=== PATIENT | male | born 1970 | race Caucasian/White ===

== ENCOUNTER 2022-01-28 13:21 | Emergency (ER) | payer MEDICAID ==
[~2022-01-28] VITALS: Ht 180.3 cm; Wt 84.0 kg
[2022-01-28 13:25] VITALS: BP 126/84
[2022-01-28] MEDS ORDERED: KETOROLAC 60MG/2ML VIAL IM STA (13:43)
[2022-01-28] MEDS ORDERED: ACETAMINOPHEN 325MG TABLET PO ONE (14:15)
[2022-01-28 14:46] LABS: BASOPHILS % 0.4 % (0.0-2.0); EOSINOPHILS % 3.6 % (0.0-5.0); HEMATOCRIT. 44.5 % (42.0-52.0); HEMOGLOBIN. 15.4 g/dL (14.0-18.0); LYMPHOCYTES % 23.3 % (20.0-50.0); MEAN CORPUSCULAR HEMOGLOBIN 29.2 pg (28.0-32.0); MEAN CORPUSCULAR VOLUME 84.2 fL (80.0-94.0); MEAN PLATELET VOLUME 9.5 fl (7.4-10.4); MONOCYTES % 5.5 % (2.0-8.0); NEUTROPHILS % 67.2 % (40.0-76.0); PLATELET 116 x1000/uL (130-400); RED BLOOD CELL COUNT 5.29 mill/uL (4.7-6.1); RED CELL DISTRIBUTION WIDTH 13.8 % (11.6-14.6)
[2022-01-28 14:55] LABS: CHLORIDE 103 mEq/L (98-107)
[2022-01-28 15:20] LABS: ETHANOL BLOOD < 10 mg/dL
[2022-01-28] MEDS ORDERED: OMEP40CA20 MT (16:08)
== END 2022-01-28 16:27 | disposition home or self-care (01) ==
LOC: ER 13:21
DX: R10.13 Epigastric pain (principal); R94.31 Abnormal electrocardiogram [ECG] [EKG]; I10 Essential (primary) hypertension; E11.9 Type 2 diabetes mellitus without complications
CPT/HCPCS: 36415; 74176; 80053; 80320; 83690; 85025; 99284; J1885; G0480

== ENCOUNTER 2023-01-09 09:09 | Emergency (ER) | payer OTHER ==
[~2023-01-09] VITALS: Ht 182.9 cm; Wt 88.5 kg
[~2023-01-09 09:09] MED LIST: OMEP40CA20 MT
[2023-01-09 09:29] VITALS: O2SAT 100
[2023-01-09 09:47] LABS: BASOPHILS % 0.3 % (0.0-2.0); EOSINOPHILS % 2.1 % (0.0-5.0); HEMATOCRIT. 39.4 % (42.0-52.0); HEMOGLOBIN. 13.4 g/dL (14.0-18.0); LYMPHOCYTES % 31.8 % (20.0-50.0); MEAN CORPUSCULAR HEMOGLOBIN 29.1 pg (28.0-32.0); MEAN CORPUSCULAR HGB CONC 33.9 g/dL (31.0-37.0); MEAN CORPUSCULAR VOLUME 85.9 fL (80.0-94.0); MEAN PLATELET VOLUME 8.8 fl (7.4-10.4); MONOCYTES % 6.7 % (2.0-8.0); NEUTROPHILS % 59.1 % (40.0-76.0); PLATELET 115 x1000/uL (130-400); RED BLOOD CELL COUNT 4.59 mill/uL (4.7-6.1); RED CELL DISTRIBUTION WIDTH 15.1 % (11.6-14.6); WHITE BLOOD COUNT 3.9 x1000/uL (4.5-11.0)
[2023-01-09 09:57] LABS: CHLORIDE 107 mEq/L (98-107); INDEX HEMOLYSI 1 (1-3); INDEX ICTERIC 1 (1-4); INDEX LIPEMIC 1 (1-3); POTASSIUM 4.7 mEq/L (3.5-5.1); PROTHROMBIN TIME 10.3 sec (9.6-11.0); SODIUM 139 mEq/L (136-145)
[2023-01-09] MEDS ORDERED: MAGNESIUM/ALUMINUM HYDROXIDE/SIMETHICONE 30ML UDC PO STA (10:06)
[2023-01-09] MEDS ORDERED: DICYCLOMINE 10 MG/5 ML ORAL SYR PO STA (10:06)
[2023-01-09 10:08] LABS: ALANINE AMINOTRANSFERASE 24 IU/L (13-61); ALBUMIN 3.8 g/dL (3.4-5.0); ASPARTATE AMINOTRANSFERASE 14 IU/L (15-37); BILIRUBIN TOTAL 0.2 mg/dL (0.1-1.0); CALCIUM 8.4 mg/dL (8.5-10.1); CARBON DIOXIDE 27 mEq/L (21-32); CREATININE 1.1 mg/dL (0.6-1.3); GLUCOSE 201 mg/dL (70-105); PROTEIN TOTAL 7.1 g/dL (6.0-8.3); TROPONIN I HIGH SENSITIVITY 4 ng/L (<78); UREA NITROGEN BLOOD 20 mg/dL (7-21)
[2023-01-09] MEDS ORDERED: FAMOTIDINE 20MG TABLET PO ONE (10:15)
[2023-01-09] MEDS ORDERED: FAMO-135 MT (13:58)
[2023-01-09] MEDS ORDERED: KETOROLAC 30MG/ML VIAL IM ONE (14:30)
[2023-01-09] MEDS ORDERED: KETOROLAC 30MG/ML VIAL IM NR (14:45)
[2023-01-09] MEDS ORDERED: FAMOTIDINE 20MG TABLET PO NR (14:45)
[2023-01-09] MEDS ORDERED: MAGNESIUM/ALUMINUM HYDROXIDE/SIMETHICONE 30ML UDC PO NR (14:45)
[2023-01-09] MEDS ORDERED: HYDROCODONE/ACETAMINOPHEN 10/325MG TABLET PO ONE (15:00)
[2023-01-09 15:16] VITALS: BP 135/87; PULSE 91; RESP 16; TEMP 98.2
== END 2023-01-09 15:17 | disposition home or self-care (01) ==
LOC: ER 09:09
DX: K29.70 Gastritis, unspecified, without bleeding (principal); E11.9 Type 2 diabetes mellitus without complications; I10 Essential (primary) hypertension; Z90.49 Acquired absence of other specified parts of digestive tract; Z98.890 Other specified postprocedural states; Z88.8 Allergy status to other drugs, medicaments and biological substances
CPT/HCPCS: 80053; 80320; 83690; 85025; 85610; 84484; 36415; 71045; 93005; 99285; J1885; G0480

== ENCOUNTER 2023-01-12 03:11 | Emergency (ER) | payer OTHER ==
[~2023-01-12] VITALS: Ht 182.9 cm; Wt 89.0 kg
[~2023-01-12 03:11] MED LIST changes: +FAMO-135 MT
[2023-01-12 03:36] VITALS: O2SAT 98
[2023-01-12 04:03] LABS: BASOPHILS % 0.6 % (0.0-2.0); EOSINOPHILS % 2.7 % (0.0-5.0); HEMATOCRIT. 40.9 % (42.0-52.0); HEMOGLOBIN. 14.1 g/dL (14.0-18.0); LYMPHOCYTES % 38.4 % (20.0-50.0); MEAN CORPUSCULAR HEMOGLOBIN 29.3 pg (28.0-32.0); MEAN CORPUSCULAR HGB CONC 34.3 g/dL (31.0-37.0); MEAN CORPUSCULAR VOLUME 85.4 fL (80.0-94.0); MEAN PLATELET VOLUME 9.4 fl (7.4-10.4); MONOCYTES % 7.5 % (2.0-8.0); NEUTROPHILS % 50.8 % (40.0-76.0); PLATELET 133 x1000/uL (130-400); RED BLOOD CELL COUNT 4.79 mill/uL (4.7-6.1); RED CELL DISTRIBUTION WIDTH 14.9 % (11.6-14.6); WHITE BLOOD COUNT 4.9 x1000/uL (4.5-11.0)
[2023-01-12 04:19] LABS: CHLORIDE 104 mEq/L (98-107); INDEX HEMOLYSI 2 (1-3); INDEX ICTERIC 1 (1-4); INDEX LIPEMIC 1 (1-3); POTASSIUM 4.4 mEq/L (3.5-5.1); SODIUM 139 mEq/L (136-145)
[2023-01-12 04:42] LABS: ALANINE AMINOTRANSFERASE 26 IU/L (13-61); ALBUMIN 4.1 g/dL (3.4-5.0); ASPARTATE AMINOTRANSFERASE 18 IU/L (15-37); BILIRUBIN TOTAL 0.3 mg/dL (0.1-1.0); CALCIUM 9.1 mg/dL (8.5-10.1); CARBON DIOXIDE 29 mEq/L (21-32); CREATININE 1.2 mg/dL (0.6-1.3); GLUCOSE 189 mg/dL (70-105); PROTEIN TOTAL 7.2 g/dL (6.0-8.3); TROPONIN I HIGH SENSITIVITY 4 ng/L (<78); UREA NITROGEN BLOOD 12 mg/dL (7-21)
[2023-01-12] MEDS ORDERED: MAGNESIUM/ALUMINUM HYDROXIDE/SIMETHICONE 30ML UDC PO STA (05:24)
[2023-01-12] MEDS ORDERED: ONDANSETRON HCL 4MG/2ML INJ IV STA (05:24)
[2023-01-12] MEDS ORDERED: FAMOTIDINE 20MG/2ML VIAL IV STA (05:24)
[2023-01-12] MEDS ORDERED: SODIUM CHLORIDE 0.9% 1,000 ML IV ONE (05:30)
[2023-01-12 05:48] LABS: CLARITY URINE CLEAR (CLEAR); COLOR URINE YELLOW (YELLOW); GLUCOSE URINE 1+ (NEGATIVE); KETONES URINE NEGATIVE (NEGATIVE); LEUKOCYTE ESTERASE URINE NEGATIVE (NEGATIVE); NITRITE URINE NEGATIVE (NEGATIVE); OCCULT BLOOD URINE NEGATIVE (NEGATIVE); PH URINE 5.5 (4.5-8.0); PROTEIN URINE 2+ (NEGATIVE); SPECIFIC GRAVITY URINE 1.021 (1.005-1.030)
[2023-01-12 06:45] LABS: TROPONIN I HIGH SENSITIVITY 4 ng/L (<78)
[2023-01-12] MEDS ORDERED: MAGNESIUM/ALUMINUM HYDROXIDE/SIMETHICONE 30ML UDC PO NR (07:30)
[2023-01-12] MEDS ORDERED: ONDANSETRON HCL 4MG/2ML INJ IV NR (07:30)
[2023-01-12] MEDS ORDERED: FAMOTIDINE 20MG/2ML VIAL IV NR (07:30)
[2023-01-12 07:56] LABS: BACTERIA URINE NONE SEEN; RBC URINE 0-2 /hpf (0-2); SQUAMOUS EPITHELIAL CELL URINE NONE SEEN /lpf (RARE/1+); WBC URINE 0-2 /hpf (0-2)
[2023-01-12] MEDS ORDERED: KETOROLAC 15MG/ML VIAL IM ONE (09:00)
[2023-01-12 09:30] VITALS: TEMP 98
[2023-01-12] MEDS ORDERED: ACETAMINOPHEN 325MG TABLET PO ONE (09:30)
[2023-01-12] MEDS ORDERED: MORPHINE SULFATE 4 MG/ML CPJ (NOT FOR IM USE) IV ONE ×2 (10:00→17:45)
[2023-01-12] MEDS ORDERED: IOHEXOL-300 100 ML BOTTLE ONE (10:14)
[2023-01-12 17:56] VITALS: BP 132/90; PULSE 93; RESP 18
== END 2023-01-12 20:15 | disposition home or self-care (01) ==
LOC: ER 03:11
DX: K76.6 Portal hypertension (principal); R10.13 Epigastric pain; E11.9 Type 2 diabetes mellitus without complications; I10 Essential (primary) hypertension; Z90.49 Acquired absence of other specified parts of digestive tract; Z98.890 Other specified postprocedural states
CPT/HCPCS: 80053; 81003; 82962; 83690; 85025; 84484; 36415; 74177; 93005; 96361; 96374; 96375; 96376; 99285; Q9967; J3490; J2405; J2270; J7030; Z7610 ×2

== ENCOUNTER 2023-07-07 21:47 | Inpatient (IN) | payer OTHER ==
[~2023-07-07] VITALS: Ht 182.9 cm; Wt 87.1 kg
[2023-07-07 23:06] LABS: BASOPHILS % 0.4 % (0.0-2.0); EOSINOPHILS % 4.8 % (0.0-5.0); HEMATOCRIT. 34.6 % (42.0-52.0); HEMOGLOBIN. 12.1 g/dL (14.0-18.0); LYMPHOCYTES % 35.1 % (20.0-50.0); MEAN CORPUSCULAR HEMOGLOBIN 30.3 pg (28.0-32.0); MEAN CORPUSCULAR VOLUME 86.5 fL (80.0-94.0); MEAN PLATELET VOLUME 9.5 fl (7.4-10.4); NEUTROPHILS % 52.7 % (40.0-76.0); PLATELET 130 x1000/uL (130-400); RED CELL DISTRIBUTION WIDTH 13.7 % (11.6-14.6)
[2023-07-07 23:12] LABS: CARBON DIOXIDE 25 mEq/L (21-32); CHLORIDE 105 mEq/L (98-107); POTASSIUM 4.3 mEq/L (3.5-5.1); SODIUM 137 mEq/L (136-145)
[2023-07-07 23:13] LABS: CALCIUM 9.3 mg/dL (8.7-10.4)
[2023-07-07 23:17] LABS: CREATININE 1.3 mg/dL (0.6-1.3)
[2023-07-07 23:18] LABS: GLUCOSE 134 mg/dL (70-105); UREA NITROGEN BLOOD 20 mg/dL (9-23)
[2023-07-07 23:19] LABS: ALANINE AMINOTRANSFERASE 24 IU/L (10-49); ALBUMIN 4.6 g/dL (3.2-4.8); ASPARTATE AMINOTRANSFERASE 25 IU/L (<34); TROPONIN I HIGH SENSITIVITY < 4 ng/L (3.0-53)
[2023-07-07 23:20] LABS: BILIRUBIN TOTAL 0.2 mg/dL (0.1-1.0); PROTEIN TOTAL 7.1 g/dL (6.0-8.3)
[2023-07-07 23:24] LABS: BILIRUBIN DIRECT < 0.1 mg/dL (<=3.0)
[2023-07-08] MEDS ORDERED: ONDANSETRON 4MG ODT PO ONE (01:30)
[2023-07-08 01:53] LABS: CLARITY URINE CLEAR (CLEAR); COLOR URINE YELLOW (YELLOW); GLUCOSE URINE NEGATIVE (NEGATIVE); KETONES URINE NEGATIVE (NEGATIVE); LEUKOCYTE ESTERASE URINE NEGATIVE (NEGATIVE); NITRITE URINE NEGATIVE (NEGATIVE); OCCULT BLOOD URINE NEGATIVE (NEGATIVE); PH URINE 6.5 (4.5-8.0); PROTEIN URINE 1+ (NEGATIVE); UROBILINOGEN URINE 0.2 E.U./dL (0.2-1.0)
[2023-07-08] MEDS ORDERED: PANTOPRAZOLE SODIUM 40 MG/VIAL IV STA (02:14)
[2023-07-08 02:15] LABS: BACTERIA URINE TRACE; RBC URINE 0-2 /hpf (0-2); SQUAMOUS EPITHELIAL CELL URINE 1+ /lpf (RARE/1+); WBC URINE 0-2 /hpf (0-2)
[2023-07-08] MEDS ORDERED: MORPHINE SULFATE 4 MG/ML INJ (FOR IV/IM USE) IV ONE (03:30)
[2023-07-08 04:22] LABS: INR 0.9; PROTHROMBIN TIME 10.3 sec (9.6-11.0)
[2023-07-08] MEDS: SODIUM CHLORIDE 0.9% 1,000 ML IV ONE (04:25)
[2023-07-08] MEDS: MORPHINE SULFATE 4 MG/ML INJ (FOR IV/IM USE) IV NR (04:41)
[2023-07-08] MEDS: PANTOPRAZOLE SODIUM 40 MG/VIAL IV NR (04:41)
[2023-07-08] MEDS: ONDANSETRON 4MG ODT PO NR (04:41)
[2023-07-08] MEDS: IOHEXOL-300 100 ML BOTTLE ONE (07:21)
[2023-07-08 09:00] VITALS: BP 145/95; PULSE 18; PULSE 99; RESP 18; TEMP 97.9
[2023-07-08] MEDS ORDERED: DIAZ10TA4 MT (09:59)
[2023-07-08] MEDS ORDERED: LANTUSUD SUBCUT (09:59)
[2023-07-08] MEDS ORDERED: MIRT-89 PO (09:59)
[2023-07-08] MEDS ORDERED: METO25TA6 MT (09:59)
[2023-07-08] MEDS ORDERED: PIOG15TA6 MT (09:59)
[2023-07-08] MEDS ORDERED: DULA0.75 SQ (09:59)
[2023-07-08] MEDS ORDERED: SEMA7TAB2 (09:59)
[2023-07-08] MEDS ORDERED: LISI10TA26 MT (09:59)
[2023-07-08] MEDS ORDERED: CARI1.5C MT (09:59)
[2023-07-08] MEDS ORDERED: NALOXONE HCL 0.4MG/ML VIAL IV PRN (10:30)
[2023-07-08] MEDS ORDERED: ACETAMINOPHEN 325MG TABLET PO PRN (10:30)
[2023-07-08] MEDS ORDERED: ONDANSETRON HCL 4MG/2ML INJ IV PRN (10:30)
[2023-07-08] MEDS: HYDROCODONE/ACETAMINOPHEN 5/325MG TABLET PO PRN (11:19)
[2023-07-08 12:00] VITALS: BP 130/93; PULSE 108; RESP 18; TEMP 97.2
[2023-07-08] MEDS: HYDROCODONE/ACETAMINOPHEN 10/325MG TABLET PO PRN (13:16)
[2023-07-08] MEDS: PANTOPRAZOLE SODIUM 40 MG/VIAL IV SCH (13:24)
[2023-07-08 16:00] VITALS: BP 136/95; PULSE 99; RESP 18; TEMP 97.9
[2023-07-08 20:00] VITALS: BP 117/78; PULSE 84; RESP 18; TEMP 98.4
[2023-07-09] VITALS: BP 99/73; PULSE 75; RESP 18; TEMP 98.6
[2023-07-09 04:00] VITALS: BP 120/79; PULSE 83; RESP 18; TEMP 98
[2023-07-09] MEDS ORDERED: PANTOPRAZOLE 40MG DR TABLET PO SCH (07:10)
[2023-07-09 08:00] VITALS: BP 105/69; PULSE 81; RESP 18; TEMP 97.7
[2023-07-09 08:30] LABS: BASOPHILS % 0.3 % (0.0-2.0); EOSINOPHILS % 3.8 % (0.0-5.0); HEMATOCRIT. 32.7 % (42.0-52.0); HEMOGLOBIN. 11.4 g/dL (14.0-18.0); LYMPHOCYTES % 29.5 % (20.0-50.0); MEAN CORPUSCULAR HGB CONC 34.9 g/dL (31.0-37.0); MEAN CORPUSCULAR VOLUME 85.8 fL (80.0-94.0); MEAN PLATELET VOLUME 9.2 fl (7.4-10.4); NEUTROPHILS % 59.4 % (40.0-76.0); PLATELET 107 x1000/uL (130-400); RED BLOOD CELL COUNT 3.82 mill/uL (4.7-6.1); RED CELL DISTRIBUTION WIDTH 13.6 % (11.6-14.6); WHITE BLOOD COUNT 3.3 x1000/uL (4.5-11.0)
[2023-07-09 08:44] LABS: CHLORIDE 106 mEq/L (98-107); POTASSIUM 4.2 mEq/L (3.5-5.1); SODIUM 137 mEq/L (136-145)
[2023-07-09 08:45] LABS: CALCIUM 9.3 mg/dL (8.7-10.4); CARBON DIOXIDE 25 mEq/L (21-32)
[2023-07-09 08:48] LABS: FERRITIN 131 ng/mL (22-322)
[2023-07-09 08:50] LABS: ALANINE AMINOTRANSFERASE 24 IU/L (10-49); CREATININE 1.2 mg/dL (0.6-1.3); FOLIC ACID (FOLATE) SERUM > 20.00 ng/mL (>5.38); GLUCOSE 172 mg/dL (70-105); IRON 99 ug/dL (65-175); UREA NITROGEN BLOOD 14 mg/dL (9-23); VITAMIN B12 SERUM 804 pg/mL (211-911)
[2023-07-09 08:51] LABS: PROTEIN TOTAL 5.8 g/dL (6.0-8.3)
[2023-07-09 08:52] LABS: ALBUMIN 3.9 g/dL (3.2-4.8); ASPARTATE AMINOTRANSFERASE 21 IU/L (<34)
[2023-07-09 08:53] LABS: BILIRUBIN TOTAL 0.2 mg/dL (0.1-1.0); TOTAL IRON BINDING CAPACITY 232 ug/dl (250-425)
[2023-07-09 09:01] LABS: HEPATITIS B SURFACE ANTIGEN NEGATIVE (Negative)
[2023-07-09 09:21] LABS: HEPATITIS A AB IGM NEGATIVE (Negative)
[2023-07-09 09:22] LABS: HEPATITIS B CORE AB IGM NEGATIVE (Negative)
[2023-07-09 09:23] LABS: HEPATITIS C AB NON REACTIVE (Neg) (Negative)
[2023-07-09 12:00] VITALS: BP 111/78; PULSE 89; RESP 20; TEMP 98.2
[2023-07-09 16:00] VITALS: BP 110/67; PULSE 82; RESP 20; TEMP 98.2
[2023-07-09 20:00] VITALS: BP 99/69; PULSE 92; RESP 18; TEMP 99.5
[2023-07-10] VITALS: BP 120/83; PULSE 77; RESP 18; TEMP 99.5
[2023-07-10 04:00] VITALS: BP 114/78; PULSE 83; RESP 16; TEMP 97.1
[2023-07-10 08:00] VITALS: BP 110/67; PULSE 85; RESP 18; TEMP 98.4
[2023-07-10 08:18] LABS: BASOPHILS % 0.2 % (0.0-2.0); EOSINOPHILS % 3.5 % (0.0-5.0); HEMATOCRIT. 33.4 % (42.0-52.0); HEMOGLOBIN. 11.7 g/dL (14.0-18.0); LYMPHOCYTES % 32.2 % (20.0-50.0); MEAN CORPUSCULAR HEMOGLOBIN 29.8 pg (28.0-32.0); MEAN CORPUSCULAR VOLUME 85.3 fL (80.0-94.0); MEAN PLATELET VOLUME 9.3 fl (7.4-10.4); MONOCYTES % 6.8 % (2.0-8.0); NEUTROPHILS % 57.3 % (40.0-76.0); PLATELET 104 x1000/uL (130-400); RED BLOOD CELL COUNT 3.92 mill/uL (4.7-6.1); RED CELL DISTRIBUTION WIDTH 13.5 % (11.6-14.6); WHITE BLOOD COUNT 3.7 x1000/uL (4.5-11.0)
[2023-07-10 08:38] LABS: CHLORIDE 104 mEq/L (98-107); POTASSIUM 4.2 mEq/L (3.5-5.1); SODIUM 137 mEq/L (136-145)
[2023-07-10 08:39] LABS: CARBON DIOXIDE 27 mEq/L (21-32)
[2023-07-10 08:45] LABS: CREATININE 1.2 mg/dL (0.6-1.3); GLUCOSE 163 mg/dL (70-105); UREA NITROGEN BLOOD 15 mg/dL (9-23)
[2023-07-10 08:55] LABS: CALCIUM 9.7 mg/dL (8.7-10.4)
[2023-07-10 12:00] VITALS: BP 110/77; PULSE 86; RESP 17; TEMP 97.7
[2023-07-10] MEDS: PNEUMOCOCCAL 23-VAL P-SAC VAC 0.5 ML IM ONE (12:41)
[2023-07-10 12:44] VITALS: BP 110/77; PULSE 86; TEMP 97.7; O2SAT 97
== END 2023-07-10 14:05 | disposition home or self-care (01) | DRG 249 ==
LOC: ER 21:47 → 8WST 07-08 04:56 → EDBEDREQ 07-08 05:02 → EDBEDREQTM 07-08 05:02
PROVIDERS: ADMIT Internal Medicine; ATTEND Internal Medicine
DX: K52.9 Noninfective gastroenteritis and colitis, unspecified (principal); I81 Portal vein thrombosis; K92.0 Hematemesis; R16.2 Hepatomegaly with splenomegaly, not elsewhere classified; K76.0 Fatty (change of) liver, not elsewhere classified; E11.9 Type 2 diabetes mellitus without complications; D72.819 Decreased white blood cell count, unspecified; I10 Essential (primary) hypertension; K76.9 Liver disease, unspecified; K31.89 Other diseases of stomach and duodenum; K86.1 Other chronic pancreatitis; K57.30 Diverticulosis of large intestine without perforation or abscess without bleeding; R91.1 Solitary pulmonary nodule; Z90.49 Acquired absence of other specified parts of digestive tract
CPT/HCPCS: 36415; 74177; 76705; 80048; 80053; 80076; 81003; 82607; 82728; 82746; 82962; 83036; 83540; 83550; 83605; 84484; 85025; 85044; 86705; 86709; 86850; 86900; 87340; 93005; 99285; C9113; J2270; J7030; Q0162; Q9967